=== PATIENT | male | born 1955 | race Caucasian/White ===

== ENCOUNTER 2020-03-10 11:25 | Outpatient (CLI) | payer BC, SELFPAY ==
--- NOTE | ~2020-03-10 | XR_ITS ---
EXAMINATION: XR lumbar spine 2-3V DATE: 03/10/2020 11:53 INDICATION: Lumbar ago with sciatica TECHNIQUE: Anteroposterior and lateral views of the lumbar spine, and cone-down lateral view of the l umbosacral junction were obtained. COMPARISON: CT, 08/10/2018 FINDINGS: There are changes of anterior fusion and posterior fusion on the left at L3-4. There is no fracture. Bone alignment is normal. The vertebral body heights are normal. There is mild loss of inte rvertebral disc space height at at L2-3. Calcified atherosclerosis is noted. IMPRESSION: 1. Postsurgical changes without acute findings. Reviewed, dictated and finalized at location A.
== END 2020-03-10 11:26 | disposition home or self-care (01) ==
LOC: ANHIMG 11:32
PROVIDERS: PCP Physician Assistant; Visit Provider Physician Assistant
DX: M54.42 Lumbago with sciatica, left side (principal)
CPT/HCPCS: 72100

== ENCOUNTER 2020-03-26 10:10 | Outpatient (CLI) | payer BC, SELFPAY ==
--- NOTE | ~2020-03-26 | MR_ITS ---
EXAMINATION: MR abdomen wo con DATE: 03/26/2020 12:02 INDICATION: Complex renal cyst. TECHNIQUE: Magnetic resonance imaging (MRI) of the abdomen was performed without intravenous contrast . Sequences included coronal T2-weighted FS FSE, coronal and axial FIESTA FS, coronal LAVA-flex, axia l LAVA, axial T2-weighted FSE, axial T1-weighted dual-echo FSPGR, axial STIR FSE, and axial DWI. COMPARISON: Abdomen MRI 08/04/2019, 08/15/2018, CT abdomen and pelvis 08/10/2018 FINDINGS: There is diffuse hepatic steatosis. The gallbladder, spleen, pancreas, and adrenal glands are normal. There are simple cysts in the kidneys measuring up to 1.6 cm on the left. There are hemorrhagic cyst s in the kidneys measuring up to 2.5 cm on the right. There are no dilated loops of bowel. There are no pathologically enlarged lymph nodes. There is no free intraperitoneal fluid. IMPRESSION: 1. Benign cysts in the kidneys. Reviewed, dictated and finalized at location A.
--- NOTE | ~2020-03-26 | MR_ITS ---
EXAMINATION: MR lumbar spine wo con DATE: 03/26/2020 11:38 INDICATION: Lumbago. Bilateral sciatica. TECHNIQUE: Magnetic resonance imaging (MRI) of the lumbar spine was performed without intravenous con trast. Sequences included sagittal T2-weighted FSE, sagittal T2-weighted FS FSE, sagittal T1-weighted FSE, and axial T2-weighted FSE. COMPARISON: Lumbar spine radiographs 03/10/2020 FINDINGS: There is 9 degrees dextrocurvature of thoracolumbar spine. There are changes of anterior an d posterior fusion procedures at L3-L4 with discectomy, interbody device, and left-sided pedicle scre ws. Vertebral body heights are normal. There is moderately decreased disc height at L2-L3 and mildly decreased disc height at L4-L5. The distal spinal cord signal intensity is normal. The conus medullar is is at L1-L2. The following disc levels are specifically discussed: L1-L2: The disc does not extend beyond the endplate margin. There is mild bilateral facet joint osteo arthritis. There is no neural foraminal stenosis. There is no central canal stenosis. L2-L3: The disc is bulging. There is moderate bilateral facet joint hypertrophy. There is mild bilate ral neural foraminal stenosis. There is mild central canal stenosis. L3-L4: There is severe bilateral facet joint hypertrophy. There is moderate and moderate left neural foraminal stenosis. There is no central canal stenosis with posterior decompression. L4-L5: The disc is bulging. There is severe bilateral facet joint osteoarthritis. There is moderate b ilateral neural foraminal stenosis. There is mild central canal stenosis with posterior decompression . L5-S1: The disc does not extend beyond the endplate margin. There is severe right and moderate left f acet joint osteoarthritis. There is no neural foraminal stenosis. There is no central canal stenosis. IMPRESSION: 1. Moderate lumbar spondylosis. 2. Anterior and posterior fusion procedures at L3-L4. Reviewed, dictated and finalized at location A.
== END 2020-03-26 10:11 | disposition home or self-care (01) ==
PROVIDERS: PCP Physician Assistant; Visit Provider Physician Assistant
DX: M54.42 Lumbago with sciatica, left side (principal); M47.816 Spondylosis without myelopathy or radiculopathy, lumbar region; Z98.1 Arthrodesis status; N28.1 Cyst of kidney, acquired
CPT/HCPCS: 72148; 74181

== ENCOUNTER 2020-04-20 15:13 | Outpatient (CLI) | payer BC, SELFPAY ==
--- NOTE | ~2020-04-20 | XR_ITS ---
EXAMINATION: XR lumbar spine min 4V DATE: 04/20/2020 15:47 INDICATION: Lumbar spondylosis TECHNIQUE: Anteroposterior and lateral in neutral, flexion and extension views of the lumbar spine, a nd cone-down lateral view of the lumbosacral junction were obtained. COMPARISON: 03/10/2020 FINDINGS: Again noted are changes of anterior and posterior fusion procedure on the left at L3-4. Bon e alignment is normal. There is no laxity with flexion or extension. There is unchanged mild loss of intervertebral disc space height at L2-3. IMPRESSION: 1. Stable postsurgical changes without acute findings. Reviewed, dictated and finalized at location A.
== END 2020-04-20 15:14 | disposition home or self-care (01) ==
PROVIDERS: PCP Physician Assistant; Visit Provider Physician Assistant
DX: M47.896 Other spondylosis, lumbar region (principal)
CPT/HCPCS: 72110

== ENCOUNTER 2020-05-26 08:28 | Outpatient (CLI) | payer BC, SELFPAY ==
--- NOTE | ~2020-05-26 | CT_ITS ---
EXAMINATION: CT lumbar spine wo con DATE: 05/26/2020 08:52 INDICATION: Pseudoarthrosis after spinal fusion. Postlaminectomy syndrome. Low back pain. TECHNIQUE: Computed tomography (CT) of the lumbar spine was performed without intravenous contrast. A utomated exposure control and iterative reconstruction technique were employed. The dose-length produ ct was 969.01 mGy-cm. COMPARISON: Lumbar spine radiograph 04/20/2020, lumbar spine MRI 05/26/2020, CT abdomen and pelvis 07/27 FINDINGS: There is 7 degrees dextrocurvature of thoracolumbar spine. There is 3 mm anterolisthesis of L3 on L4. There are changes of anterior fusion procedure at L3-L4 with interbody devices, healed int erbody bone graft, and left-sided pedicle screws. There is mildly decreased disc height at L2-L3 and L4-L5. There are Schmorl's nodes at L1-L2 and L4-L5. There are worsened endplate erosions and scleros is at L2-L3. The following disc levels are specifically discussed: L1-L2: The disc does not extend beyond the endplate margins. There is moderate right and mild left fa cet joint osteoarthritis. There is no neural foraminal stenosis. There is no central canal stenosis. L2-L3: The disc is bulging. There is severe bilateral facet joint osteoarthritis. There is mild right and moderate left neural foraminal stenosis. There is moderate central canal stenosis. L3-L4: There is moderate bilateral facet joint hypertrophy. There is mild right and moderate left hao ral foraminal stenosis. There is mild central canal stenosis with posterior decompression. L4-L5: The disc is bulging. There is severe bilateral facet joint osteoarthritis. There is moderate b ilateral neural foraminal stenosis. There is mild central canal stenosis with posterior decompression . L5-S1: The disc does not extend beyond the endplate margins. There is moderate bilateral facet joint osteoarthritis. There is no neural foraminal stenosis. There is no central canal stenosis. IMPRESSION: 1. Worsened endplate erosions and sclerosis at L2-L3, but stable mildly decreased disc height. These findings may be discitis or degenerative change. Consider lumbar spine MRI without and with contrast. 2. Anterior and posterior fusion at L3-L4. 3. Moderate lumbar spondylosis. Reviewed, dictated and finalized at location A. IMPRESSION: 1. Worsened endplate erosions and sclerosis at L2-L3, but stable mildly decreas ed disc height. These findings may be discitis or degenerative change. Consider lumbar spine MRI without and with contrast. 2. Anterior and posterior fusion at L3-L4. 3. Moderate lumbar spondylosis.
== END 2020-05-26 08:29 | disposition home or self-care (01) ==
LOC: ANHIMG 08:34
PROVIDERS: PCP Physician Assistant; Visit Provider Neurological Surgery
DX: M96.0 Pseudarthrosis after fusion or arthrodesis (principal); M96.1 Postlaminectomy syndrome, not elsewhere classified; M47.816 Spondylosis without myelopathy or radiculopathy, lumbar region; Z98.1 Arthrodesis status
CPT/HCPCS: 72131

== ENCOUNTER → 2021-01-02 02:51 | Outpatient (CLI) | payer BC, MEDICARE, SELFPAY ==
[2021-01-02 22:46] LABS: SARS-CoV-2 RNA PCR Negative
== END ==
PROVIDERS: PCP Physician Assistant; Visit Provider Specialist
DX: Z01.812 Encounter for preprocedural laboratory examination (principal); Z20.822 Contact with and (suspected) exposure to COVID-19
CPT/HCPCS: C9803; U0003; U0005

== ENCOUNTER 2021-01-05 01:47 | Day surgery (SDC) | payer BC, MEDICARE, SELFPAY ==
[2021-01-04 16:19] VITALS: BMI 32.2
[2021-01-05] VITALS (21 sets, daily range): BP systolic 153–174; BP diastolic 51–72; PULSE 66–93; RESP 12–18; TEMP 36.1–36.7; O2SAT 97–100; BMI 32.2
[2021-01-05 07:30] LABS: Basophils Percent Auto 0.7 % (0.2-1.2); Eosinophils Absolute Auto 0.1 K/mm3 (0-0.3); Eosinophils Percent Auto 1.9 % (0-4.4); Hematocrit 24.5 % (42.0-52.0); Hemoglobin 8.6 g/dL (14.0-18.0); Immature Granulocyte Absolute 0.09 K/mm3 (0.00-0.031); Immature Granulocyte Percent A 1.6 % (0-0.5); Lymphocytes Absolute Auto 0.84 K/mm3 (0.9-3.2); Lymphocytes Percent Auto 14.9 % (18.3-44.2); Mean Corpuscular HGB Conc 35.1 g/dl (32-36); Mean Corpuscular Hemoglobin 30.4 pg (26-34); Mean Corpuscular Volume 86.6 fl (80-100); Mean Platelet Volume 9.6 fl (7.4-10.4); Monocytes Absolute Auto 0.7 K/mm3 (0.1-0.6); Monocytes Percent Auto 11.5 % (2.6-8.5); Neutrophils Absolute Auto 3.9 K/mm3 (1.3-6.7); Neutrophils Percent Auto 69.4 % (45.5-73.1); Platelet Count Result 140 k/mm3 (150-375); Red Blood Count 2.83 M/mm3 (4.6-6.20); Red Cell Distribution Width 14.1 % (11.5-14.5); White Blood Count 5.7 K/mm3 (4.5-10.0)
[2021-01-05 07:36] LABS: Prothrombin Time 14.2 Seconds (11.1-14.7)
[2021-01-05 07:40] LABS: Anion Gap 9 mmol/L (8-16); Blood Urea Nitrogen 67 mg/dL (9-20); Carbon Dioxide 24 mmol/L (22-30); Chloride 106 mmol/L (98-107); Estimated CRCL calculation 14 ml/min; Estimated Glomerular Filt Rate 10; Glucose 156 mg/dL (75-110); Potassium 3.8 mmol/L (3.4-5.0); Sodium 139 mmol/L (137-145)
--- NOTE | 2021-01-05 12:26 | WPDMODSED ---
Moderate Sedation Note-Pt Data Patient Data Diagnosis: Coronary artery disease remote history of percutaneous revascularization Advanced renal failure being evaluated as a candidate for transplantation Abnormal nuclear stress test Present Complaint: Intermittent chest discomfort with dyspnea since the stress test was performed Procedure to be performed/Plan: Left heart catheterization Allergies Allergy/AdvReac Type Severity Reaction Status Date / Time No Known Allergies Allergy Unknown Unverified 08/18/19 16:28 No Known Allergies Allergy Uncoded 08/18/19 16:28 Home Medications Medication Instructions Recorded Confirmed Type amlodipine 5 mg PO DAILY 01/04/21 01/04/21 History aspirin 81 mg PO DAILY 01/04/21 01/04/21 History carvedilol 25 mg PO BID 01/04/21 01/04/21 History clonidine HCl 0.2 mg PO TID 01/04/21 01/04/21 History fenofibrate nanocrystallized 145 mg PO DAILY 01/04/21 01/04/21 History hydrochlorothiazide 25 mg PO DAILY 01/04/21 01/04/21 History insulin detemir U-100 [Levemir 22 unit SUBCUT DAILY 01/04/21 01/04/21 History FlexTouch U-100 Insuln] insulin lispro [Humalog KwikPen See Protocol SUBCUT DAILY 01/04/21 01/04/21 History Insulin] lovastatin 20 mg PO DAILY 01/04/21 01/04/21 History omeprazole 20 mg PO DAILY 01/04/21 01/04/21 History sitagliptin [Januvia] 25 mg PO DAILY 01/04/21 01/04/21 History valsartan 160 mg PO DAILY 01/04/21 01/04/21 History Current Medications: Active Medications Sodium Bicarbonate 150 meq/Potassium Chloride 20 meq/Dextrose 1,110 mls @ 150 mls/hr IV CONT .Q7H24M ONE Stop: 01/05/21 12:53 Last Admin: 01/05/21 07:29 Dose: 150 mls/hr Documented by: Sedation/Anesthesia: No previous sedation/anesthesia problems (including family history). [facility] Family History Family History (Updated 08/28/18 @ 18:51 by DOCTOR UNKNOWN) Father Family history of hypercholesterolemia Hypertension Family history of cardiovascular disease Family history of heart disease in male family member before age 55 Patient's father is Mother Family history of malignant neoplasm of ovary Family history of malignant neoplasm of uterus Patient's mother is Other Diabetes mellitus Family history of congestive heart failure Family history of malignant neoplasm Social History Social History Smoking status: Former smoker Tobacco type: cigarettes Second hand tobacco smoke exposure: No Smoking end date: 10/27/03 Alcohol intake: former Substance use: never Substance use type: does not use Living arrangements: with family Spiritual care concerns: No Mod Sed Physical Exam Physical Exam Pre Procedural Exam: Normal: Appearance, Nose, Neck, Throat, Airway, Lungs, Heart Size, Heart Rate, Heart Rhythm and Neuro Exam and Variation: Extremities (Diminished peripheral arterial pulses in both lower extremity) Hours since solid foods: 12 Hours since liquid intake: 12 Internal Medicine - PN: Obj Da Vital Signs Vital Signs: Vital Signs - 24 hr 01/05/21 06:32 Temperature 36.7 C Pulse Rate 74 Respiratory Rate 18 Blood Pressure 161/61 H Pulse Oximetry 98 Meds/Results Medications: Active Medications Generic Name Dose Route Start Last Admin Trade Name Freq PRN Reason Stop Dose Admin Sodium Bicarbonate 150 meq/ 1,110 mls @ 150 mls/hr 01/05/21 05:30 01/05/21 07:29 Potassium Chloride 20 meq/ IV CONT 01/05/21 12:53 150 mls/hr Dextrose .Q7H24M ONE Administration Labs CBC & Chem 7: 01/05/21 07:23 01/05/21 07:23 Labs: Laboratory Results - last 24 hr 01/05/21 01/05/21 01/05/21 07:23 07:23 07:23 WBC 5.7 RBC 2.83 L Hgb 8.6 L Hct 24.5 L MCV 86.6 MCH 30.4 MCHC 35.1 RDW 14.1 Plt Count 140 L MPV 9.6 Immature Gran % (Auto) 1.6 H Neut % (Auto) 69.4 Lymph % (Auto) 14.9 L [place] % (Auto) 11.5 H Eos % (Auto) 1.9 Baso % (Auto) 0.7 Lymph # (A
[2021-01-05] MEDS: SODIUM CHLORIDE 0.9% IV 1,000 ML 125 ML IV CONT (13:19)
--- NOTE | 2021-01-05 13:20 | P.PCNCC_ITS ---
Cardiac Cath Procedure Note Date of procedure:: 01/05/21 Performing physician:: Remi Galvez MD Indication:: 65-year-old man with coronary disease, remote history of RCA stenting and abnormal nuclear stress test which was performed as part of his evaluation for a renal transplant. Patient has stage 5 chronic kidney disease. Brief clinical history:: As above Procedure Procedure performed:: left heart catheterization with left ventriculography and coronary angiography Sedation/Medication given:: fentanyl 50 mg Versed 2 mg case start time 12:26 p.m. case end time 1:11 p.m. sedation provided by Liss Sauceda RN, trained observer Access site:: right femoral artery Estimated blood loss:: 20-30 cc Procedure note:: patient was brought to the cardiac catheterization lab where the right femoral triangle was prepped and draped in the usual sterile fashion. Anesthesia was provided with 1% lidocaine infiltrated locally. After this the right femoral artery was punctured and a 5 [place] vascular sheath was placed. The patient then underwent left heart catheterization I used a 5 [place] angled pigtail catheter to measure left-sided hemodynamics and to injected LV g in the are AO projection. After this the left coronary was injected in multiple projections using a standard 5 [place] FL4 catheter. The right coronary was i njected in 1 projection using the 5 [place] JR4 catheter in angiogram was done of the femoral artery through the sheath after which it was determined that the sheath would have to be removed with a direct manual compression. The patient tolerated procedure well there were no apparent complications. Findings:: hemodynamics: Central aortic pressure is 193/63 left ventricle 193/5 end-diastolic pressure 18. There is no systolic gradient on pullback across the aortic valve. Left ventricle: The LV is normal in size the infero posterior segments are hypodynamic but not akinetic the remainder of the LV contracts well the global ejection fraction is 50-55% by visual estimation. Left main coronary artery is nicely patent the left anterior descending is a moderate to large caliber vessel extending down to and around the apex. The LAD has no significant disease. The circumflex is a large caliber vessel giving rise to the marginal branches. The circumflex is smooth and angiographically free of disease. There is a large collateral vessel noted from the distal circumflex which supplies the distal right coronary the PDA and the PL branches and valve back fills the right coronary artery all the way up to the area that was stented in the 1st portion of the vessel. The right coronary artery was large caliber dominant to the posterior circulation. Is 100% occluded proximally actually a bit proximal to the visualized previous stented lesion. There is no antegrade flow in the RCA. Conclusion:: 1. Single-vessel coronary artery disease with right coronary dominant circulation and 100% occlusion of the proximal RCA which was stented in the remote past. 2. No significant left coronary disease with very well-developed collateral from the distal circumflex filling the entire right coronary artery all way back up to the site of the previous intervention 3. mild inferior hypokinesia overall normal ejection fraction 4. severe systemic hypertension Remi Galvez MD [facility]
[2021-01-05] MEDS: cloNIDine HCL 0.2 MG TABLET PO ×2 (13:55→17:41)
--- NOTE | 2021-01-05 14:27 | PC.NURSE ---
Pt resting comfortable. Medicated with po Clonidine to control BP for sheath pull. Site clean, dry and intact without signs of hematoma or bleeding.
[2021-01-05] MEDS: hydrALAZINE HCL 20 MG/ML VIAL 10 MG IV PUSH (14:45)
--- NOTE | 2021-01-05 16:26 | ADMGEN ---
This patient, Vincent Hager, was admitted to [facility]. Patient/family oriented to hospital policies and general routines including ID bracelet, bed and alarms, visiting hours, pain management, procedures, bathroom and other care routines, personal items, smoking policy, room service/diet, and visiting hours. Information on how to activate the Rapid Response Team has been discussed. Patient/Family are encouraged to report perceived risks to care and to ask questions if they do not understand what they are told or what they should do.
[2021-01-05 17:57] LABS: Glucose Point of Care 196 (65-105)
--- NOTE | 2021-01-05 18:12 | PC.NURSE ---
This patient, Vincent Hager, was received from [facility] on 01/05/21 at 1812. Patient/family oriented to unit policies and routines. Report received from YADIRA Pritchard.
[2021-01-05] MEDS: SODIUM CHLORIDE 0.9% IV 500 ML 125 ML IV CONT (18:54)
[2021-01-05] MEDS: carvediloL 25 MG TABLET PO (20:04)
[2021-01-05 20:58] LABS: Glucose Point of Care 295 (65-105)
[2021-01-05] MEDS: INSULIN ASPART (*BKC) 100 UNITS/ML SUB-Q (22:04)
[2021-01-06] VITALS (9 sets, daily range): BP systolic 116–170; BP diastolic 54–73; PULSE 68–77; RESP 12–15; TEMP 36.2–36.3; O2SAT 97–98
[2021-01-06 08:50] LABS: Hematocrit 26.9 % (42.0-52.0); Hemoglobin 9.5 g/dL (14.0-18.0); Mean Corpuscular HGB Conc 35.3 g/dl (32-36); Mean Corpuscular Hemoglobin 30.4 pg (26-34); Mean Corpuscular Volume 85.9 fl (80-100); Platelet Count Result 145 k/mm3 (150-375); Red Blood Count 3.13 M/mm3 (4.6-6.20); Red Cell Distribution Width 14.2 % (11.5-14.5); White Blood Count 6.5 K/mm3 (4.5-10.0)
[2021-01-06] MEDS: PANTOPRAZOLE 40 MG TABLET PO (08:55)
[2021-01-06] MEDS: VALSARTAN 160 MG TABLET PO (08:55)
[2021-01-06] MEDS: LOVASTATIN 20 MG TABLET PO (08:55)
[2021-01-06] MEDS: carvediloL 25 MG TABLET PO (08:56)
[2021-01-06] MEDS: FENOFIBRATE NANOCRYSTALLIZED 145 MG TABLET PO (08:56)
[2021-01-06] MEDS: ASPIRIN 81 MG CHEWABLE TABLET PO (08:56)
[2021-01-06] MEDS: amLODIPine BESYLATE 5 MG TABLET PO (08:56)
[2021-01-06] MEDS: hydroCHLOROthiazide 25 MG TABLET PO (08:56)
[2021-01-06 08:58] LABS: Glucose Point of Care 195 (65-105)
[2021-01-06] MEDS: INSULIN DETEMIR 100 UNITS/ML 22 UNITS SUB-Q (08:58)
[2021-01-06 09:04] LABS: Anion Gap 7 mmol/L (8-16); Blood Urea Nitrogen 63 mg/dL (9-20); Calcium 8.9 mg/dL (8.4-10.2); Carbon Dioxide 27 mmol/L (22-30); Chloride 105 mmol/L (98-107); Estimated CRCL calculation 15 ml/min; Estimated Glomerular Filt Rate 12; Glucose 174 mg/dL (75-110); Sodium 139 mmol/L (137-145)
[2021-01-06] MEDS: cloNIDine HCL 0.2 MG TABLET PO (11:13)
[2021-01-06 13:04] LABS: Glucose Point of Care 242 (65-105)
--- NOTE | 2021-01-06 13:29 | PM.PNCARD ---
Progress Note: A&P Assessment and Plan (1) CAD (coronary artery disease): Code(s): I25.10 - Atherosclerotic heart disease of [place] coronary artery without angina pectoris Status: Acute Assessment and Plan: No intervention with left heart catheterization. 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 Patient kept overnight for observation post cardiac catheterization and contrast exposure given renal failure. No access site complications. Follow-up with Dr. Galvez as scheduled. Contact office on Friday morning for appointment time. (2) CKD (chronic kidney disease) stage 4, GFR 15-29 ml/min: Code(s): N18.4 - Chronic kidney disease, stage 4 (severe) Status: Acute Assessment and Plan: BMP in 1 week. 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 Renal function stable post catheterization thus far. (3) Diabetes mellitus: Code(s): E11.9 - Type 2 diabetes mellitus without complications Status: Acute Assessment and Plan: Continue home medical therapy. (4) Hypertension: Code(s): I10 - Essential (primary) hypertension Status: Acute Assessment and Plan: Stable, continue medical therapy. Subjective Date/time seen: Date of service: 01/06/21 13:29 Follow-up for left heart catheterization history of CAD and preoperative renal transplant evaluation No issues overnight. No chest pain, shortness of breath. Right groin access site nontender no issues. Ready to be discharged home. No bleeding or pain. at bedside. Review of Systems Review of Systems: All systems reviewed & are unremarkable except as noted in HPI and below Constitutional: Constitutional: Reports as per HPI and Reports no additional constitutional complaints Eyes: Eyes: Reports as per HPI and Reports no additional eye complaints ENT: Reports system reviewed and no additional complaints, except as documented and Reports as per HPI Cardiovascular: Cardiovascular: Reports as per HPI and Reports no additional cardiovascular complaints Respiratory: Respiratory: Reports as per HPI and Reports no additional respiratory complaints Gastrointestinal: Gastrointestinal: Reports as per HPI and Reports no additional gastrointestinal complaints Genitourinary: Genitourinary: Reports no additional male genitourinary complaints and Reports as per HPI Musculoskeletal: Musculoskeletal: Reports no additional musculoskeletal complaints and Reports as per HPI Integumentary/Breasts: Skin/Breast: Reports system reviewed and no additional complaints, except as docu and Reports as per HPI Neurologic: Reports system reviewed and no additional complaints, except as documented and Reports as per HPI Psychiatric: Psychiatric: Reports no additional psychiatric complaints and Reports as per HPI Endocrine: Endocrine: Reports no additional endocrine complaints and Reports as per HPI Hematologic/Lymphatic: Hematologic/Lymphatic: Reports no additional hematologic/lymphatic complaints and Reports as per HPI Allergic/Immunologic: Allergic/Immunologic: Reports no additional allergic/immunologic complaints and Reports as per HPI Exam Narrative: Exam Narrative: General: Well developed, alert and oriented x3. No apparent distress, comfortable, pleasant, and cooperative. Head: atraumatic, normocephalic Eyes: EOM intact, sclerae anicteric, conjunctivae unremarkable Ears/Nose: external inspection of ears and nose were grossly normal Mouth/Throat: oral mucosa pink and moist Neck: supple, normal range of motion, no jugular venous distention or carotid bruits, thyroid nonpalpable, trachea midline. Cardiac: Regular rate and rhythm, normal S1-S2, no murmurs, clicks, gallops, or rubs. Lungs: Clear to auscultation bilaterally, no rales, wheezes, or rhonchi. Abdomen: Obese Soft, nontender, nondistended, positive bowel sounds throughout. No appreciable
--- NOTE | 2021-01-06 13:43 | PM.DS ---
DS: Admitting Diagnosis Admitting Diagnosis Admitting Diagnosis: CAD, elective left heart catheterization DS: Discharge Diagnosis Discharge Diagnosis (1) Hypertension: Code(s): I10 - Essential (primary) hypertension Status: Acute Assessment and Plan: Stable, continue medical therapy. (2) Diabetes mellitus: Code(s): E11.9 - Type 2 diabetes mellitus without complications Status: Acute Assessment and Plan: Continue home medical therapy. (3) CKD (chronic kidney disease) stage 4, GFR 15-29 ml/min: Code(s): N18.4 - Chronic kidney disease, stage 4 (severe) Status: Acute Assessment and Plan: BMP in 1 week. 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 Renal function stable post catheterization thus far. (4) CAD (coronary artery disease): Code(s): I25.10 - Atherosclerotic heart disease of [place] coronary artery without angina pectoris Status: Acute Assessment and Plan: No intervention with left heart catheterization. 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 Patient kept overnight for observation post cardiac catheterization and contrast exposure given renal failure. No access site complications. Follow-up with Dr. Galvez as scheduled. Contact office on Friday morning for appointment time. DS: Summary Hospital Course Hospital Course: Admitted overnight post cardiac catheterization to monitor renal function and hydration. Patient did well no complications, no intervention. Anatomy stable. Hemoglobin stable, renal function stable. No complications at access site. Stable for discharge home today. Time Spent with Patient Time attestation: Total time spent providing and/or coordinating discharge services: 32 minutes Exam Narrative: Exam Narrative: General: Well developed, alert and oriented x3. No apparent distress, comfortable, pleasant, and cooperative. Head: atraumatic, normocephalic Eyes: EOM intact, sclerae anicteric, conjunctivae unremarkable Ears/Nose: external inspection of ears and nose were grossly normal Mouth/Throat: oral mucosa pink and moist Neck: supple, normal range of motion, no jugular venous distention or carotid bruits, thyroid nonpalpable, trachea midline. Cardiac: Regular rate and rhythm, normal S1-S2, no murmurs, clicks, gallops, or rubs. Lungs: Clear to auscultation bilaterally, no rales, wheezes, or rhonchi. Abdomen: Obese Soft, nontender, nondistended, positive bowel sounds throughout. No appreciable hepatosplenomegaly, no rebound guarding or rigidity noted. Abdominal aorta nonpalpable, no appreciable bruits. Extremities: No edema, clubbing, and or cyanosis. Extremities warm and well perfused. Right groin access site soft, no bruit, hematoma or tenderness. No bleeding. Skin: Warm and dry without ecchymoses, rashes, and/or petechiae. Musculoskeletal: Muscle strength and tone intact throughout without obvious deformities. Vascular: Carotid upstrokes 2+ bilaterally, radial pulses 2+ bilaterally, dorsalis pedis pulses 2+ bilaterally Neurologic: Cranial nerves 2-12 grossly intact, examination grossly nonfocal Pscyhiatric: Mood calm and appropriate. DS: Data Data Completed and Pending Labs on day of discharge: Labs from last 24 hours 01/06/21 01/06/21 01/06/21 12:25 08:54 08:40 WBC RBC Hgb Hct MCV MCH MCHC RDW Plt Count MPV Sodium 139 Potassium 4.0 Chloride 105 Carbon Dioxide 27 Anion Gap 7 L BUN 63 H Creatinine 5.00 H Estim Creat Clear Calc 15 Estimated GFR 12 L Glucose 174 H POC Capillary Glucose 242 H 195 H Calcium 8.9 01/06/21 01/05/21 01/05/21 08:40 20:48 17:54 WBC 6.5 RBC 3.13 L Hgb 9.5 L Hct 26.9 L MCV 85.9 MCH 30.4 MCHC 35.3 RDW 14.2 Plt Count 145 L MPV 10.0 Sodium Potassium C
== END 2021-01-06 14:46 | disposition home or self-care (01) ==
LOC: ANHCATHLAB 05:57 → ANHCPC 16:23 → ANHIMU 20:11
PROVIDERS: Internal Medicine Cardiovascular Disease; PCP Physician Assistant; Visit Provider Specialist
PROC: 4A023N7 Measurement of Cardiac Sampling and Pressure, Left Heart, Percutaneous Approach (ICD-10-PCS; CPT 93452; principal; 2021-01-05 13:30)
DX: I25.10 Atherosclerotic heart disease of native coronary artery without angina pectoris (principal); R94.39 Abnormal result of other cardiovascular function study; R07.89 Other chest pain; R06.00 Dyspnea, unspecified; I12.9 Hypertensive chronic kidney disease with stage 1 through stage 4 chronic kidney disease, or unspecified chronic kidney disease; N18.4 Chronic kidney disease, stage 4 (severe); E11.22 Type 2 diabetes mellitus with diabetic chronic kidney disease; Z95.5 Presence of coronary angioplasty implant and graft; Z79.84 Long term (current) use of oral hypoglycemic drugs; Z79.4 Long term (current) use of insulin; Z79.82 Long term (current) use of aspirin; Z87.891 Personal history of nicotine dependence
CPT/HCPCS: 36415; 80048; 82948; 85025; 85027; 85610; 93458; A9270; C1887; C1894; C9803; J0360; J1644; J1815; J2250; J3010; J3480; J7030; J7040; J7070; U0003; U0005